=== PATIENT | male | born 1995 | race African-American/Black ===

== ENCOUNTER 2024-05-13 11:28 | Emergency (ER) | payer SELFPAY ==
[~2024-05-13] VITALS: Ht 188 cm; Wt 180.0 kg
[2024-05-13 11:41] VITALS: TEMP 98.5; O2SAT 99
[2024-05-13] MEDS ORDERED: CLOT15CR27 TP (12:56)
[2024-05-13] MEDS ORDERED: METF-414 MT (12:58)
[2024-05-13 13:12] LABS: CLARITY URINE CLEAR (CLEAR); COLOR URINE YELLOW (YELLOW); GLUCOSE URINE 3+ (NEGATIVE); KETONES URINE 3+ (NEGATIVE); LEUKOCYTE ESTERASE URINE NEGATIVE (NEGATIVE); NITRITE URINE NEGATIVE (NEGATIVE); OCCULT BLOOD URINE NEGATIVE (NEGATIVE); PH URINE 5.5 (4.5-8.0); PROTEIN URINE NEGATIVE (NEGATIVE); SPECIFIC GRAVITY URINE 1.041 (1.005-1.030); UROBILINOGEN URINE 0.2 E.U./dL (0.2-1.0)
[2024-05-13 13:37] LABS: BASOPHILS % 0.5 % (0.0-2.0); EOSINOPHILS % 3.9 % (0.0-5.0); HEMATOCRIT. 40.9 % (42.0-52.0); HEMOGLOBIN. 13.8 g/dL (14.0-18.0); LYMPHOCYTES % 33.6 % (20.0-50.0); MEAN CORPUSCULAR HEMOGLOBIN 28.2 pg (28.0-32.0); MEAN CORPUSCULAR HGB CONC 33.6 g/dL (31.0-37.0); MEAN PLATELET VOLUME 10.2 fl (7.4-10.4); MONOCYTES % 7.6 % (2.0-8.0); NEUTROPHILS % 54.4 % (40.0-76.0); PLATELET 188 x1000/uL (130-400); RED BLOOD CELL COUNT 4.88 mill/uL (4.7-6.1); RED CELL DISTRIBUTION WIDTH 13.3 % (11.6-14.6)
[2024-05-13 13:42] LABS: BACTERIA URINE NONE SEEN; RBC URINE 0-2 /hpf (0-2); SQUAMOUS EPITHELIAL CELL URINE RARE /lpf (RARE/1+); YEAST URINE NONE SEEN
[2024-05-13 13:44] LABS: CHLORIDE 102 mEq/L (98-107); SODIUM 135 mEq/L (136-145)
[2024-05-13 13:45] LABS: CARBON DIOXIDE 23 mEq/L (21-32)
[2024-05-13 13:46] LABS: CALCIUM 10.4 mg/dL (8.7-10.4)
[2024-05-13 13:50] LABS: CREATININE 1.3 mg/dL (0.6-1.3); GLUCOSE 399 mg/dL (70-105)
[2024-05-13 13:51] LABS: UREA NITROGEN BLOOD 11 mg/dL (9-23)
[2024-05-13 13:53] LABS: BETA HYDROXYBUTYRATE 3.4 mMol/L (0.0-0.3)
[2024-05-13] MEDS: SODIUM CHLORIDE 0.9% 1,000 ML IV ONE (15:13)
[2024-05-13 18:23] VITALS: BP 139/77; PULSE 82; RESP 18; O2SAT 100
== END 2024-05-13 18:23 | disposition home or self-care (01) ==
LOC: ER 11:37
DX: N47.1 Phimosis (principal); E11.65 Type 2 diabetes mellitus with hyperglycemia; Z79.84 Long term (current) use of oral hypoglycemic drugs
CPT/HCPCS: 80048; 81003; 82010; 82962; 85025; 36415; 96360; 99283; J7030; Z7610